=== PATIENT | female | born 1995 | race Caucasian/White ===

== ENCOUNTER 2016-11-11 21:08 | Emergency (ER) | payer OTHER ==
--- NOTE | 2016-11-12 09:20 | RAD ---
FOOT LEFT 3 VIEWS COMPARISON: None. HISTORY: Basketball injury, pain at the first metatarsal region. Initial encounter. FINDINGS: Views: Left foot dorsoplantar, medial oblique, lateral. Bones: Normal. Joints: Normal. Soft tissues: Normal. IMPRESSION: 1. Normal 3 views of the left foot.
== END 2016-11-11 22:37 | disposition home or self-care (01) ==
LOC: ED 21:08
DX: S93.602A Unspecified sprain of left foot, initial encounter (principal); W50.0XXA Accidental hit or strike by another person, initial encounter; Y93.67 Activity, basketball; Y92.310 Basketball court as the place of occurrence of the external cause